=== PATIENT | male | born 2000 | race Caucasian/White ===

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

== ENCOUNTER 2018-09-14 22:06 | Emergency (ER) | payer BC ==
[~2018-09-14] VITALS: Ht 167.6 cm; Wt 75.8 kg
[~2018-09-14 22:06] MED LIST: APIX5TAB PO; CYAN500T46 PO; MESA0.372 PO; OXCA150T3 PO; PRED10TA PO; QUET50TA PO
[2018-09-14 22:17] VITALS: Ht 167.6 cm; Wt 75.8 kg
[2018-09-14] MEDS ORDERED: SOD CHLORIDE 0.9% 1,000 ML IV STA (22:40)
[2018-09-14] MEDS ORDERED: ONDANSETRON 4 MG INJ IV STA (22:40)
[2018-09-15] MEDS ORDERED: LORAZEPAM 2 MG INJ IV ONE
[2018-09-15] MEDS ORDERED: SOD CHLORIDE 0.9% 1,000 ML IV STA (00:25)
[2018-09-15] MEDS ORDERED: ONDANSETRON 4 MG INJ IV STA (00:25)
[2018-09-15] MEDS ORDERED: morphine 4 MG/ML VIAL IV STA (01:01)
[2018-09-15] MEDS ORDERED: ONDA4TAB14 PO (02:02)
[2018-09-15] MEDS ORDERED: ACET325T33 PO (02:02)
[2018-09-15] MEDS ORDERED: SCOPOLAMINE 1.5 MG PATCH TRANSDERM ONE (02:30)
[2018-09-15 03:36] VITALS: BP 111/73; PULSE 56; RESP 16
--- NOTE | 2018-09-15 05:01 | ERD ---
ER Documentation Chief Complaint Chief Complaint VOMITING WITH MIGRAINE X1DAY HPI 17-year-old male presenting with vomiting. Patient has history of ulcerative colitis and recently was given treatment of methotrexate and Remicade. Patient had similar reaction last time he received methotrexate and there is concern about possible allergy. Patient states that he feels very weak and has tingling sensations. He has been vomiting for the last day. Has chills but no fevers. Denies any chest pain or shortness of breath. Has diffuse abdominal cramping. Medical history of ulcerative colitis and bipolar disorder. Surgical history denies. Social history denies ROS All systems reviewed and are negative except as per history of present illness. Medications Home Meds Active Scripts Acetaminophen* (Tylenol*) 325 Mg Tablet, 1 TAB PO Q6 PRN for PAIN AND OR ELEVATED TEMP, #20 TAB Prov:WILBERT ARMENTA PA-C 09/15/18 Ondansetron (Ondansetron Odt) 4 Mg Tab.rapdis, 4 MG PO Q6H PRN for NAUSEA AND/OR VOMITING, #10 TAB Prov:WILBERT ARMENTA PA-C 09/15/18 Apixaban* (Eliquis*) 5 Mg Tablet, 10 MG PO BID for 30 Days, TAB Take 10mg BID daily for the first 7 days followed by 5mg BID daily for the next 3 months or until follow up with your PCP. Prov:COLT AARON MD 06/05/17 Reported Medications Cyanocobalamin* (Vitamin B12*) 500 Mcg Tab, 500 MCG PO DAILY, TAB 06/05/17 Mesalamine* (Apriso*) 0.375 Gm Cap.sr.24h, 1.5 GM PO DAILY, CAP 06/05/17 Prednisone* (Prednisone*) 10 Mg Tab, 10 MG PO DAILY, TAB 06/05/17 Oxcarbazepine* (Trileptal*) 150 Mg Tablet, 150 MG PO BID, TAB 06/05/17 Quetiapine Fumarate* (Seroquel*) 50 Mg Tablet, 50 MG PO DAILY, TAB 06/05/17 Allergies Allergies: Coded Allergies: No Known Allergy (Unverified , 06/05/17) PMhx/Soc History of Surgery: Yes (TONSILECTOMY ) Anesthesia Reaction: No Hx Miscellaneous Medical Probl: Yes (BIPOLAR, c-diff, low blood count) Hx Alcohol Use: No Hx Substance Use: Yes (MARIJUANA ) Hx Tobacco Use: No Smoking Status: Never smoker FmHx Family History: No diabetes, No coronary disease, No other Physical Exam Vitals Vital Signs Date Temp Pulse Resp B/P (MAP) Pulse Ox O2 O2 Flow FiO2 Time Delivery Rate 09/15/18 97.6 56 16 111/73 98 Room Air 03:36 (86) 09/14/18 98.0 91 16 131/74 95 22:17 (93) Physical Exam GENERAL: The patient is well-appearing, well-nourished, in no acute distress HEENT: Atraumatic. Conjunctivae are pink. Pupils equal, round, and reactive to light. There is no scleral icterus. Tympanic membranes clear bilaterally. Oropharynx clear. No nystagmus or photophobia. CHEST: Clear to auscultation bilaterally. There are no rales, wheezes or rhonchi. HEART: Regular rate and rhythm. No murmurs, clicks, rubs or gallops. No S3 or S4. ABDOMEN:Soft, nontender and nondistended. Good bowel sounds. No rebound or guarding. No gross peritonitis. No gross organomegaly or masses. No Soria sign or McBurney point tenderness. NEUROLOGIC: Alert and oriented. Cranial nerves II through XII intact. Motor strength in all 4 extremities with 5 out of 5 strength. Sensation grossly intact. Result Diagram: 09/14/18 2311 09/14/18 2311 Results 24 hrs Laboratory Tests Test 09/14/18 23:11 White Blood Count 10.4 10^3/ul Red Blood Count 4.99 10^6/ul Hemoglobin 15.1 g/dl Hematocrit 43.3 % Mean Corpuscular Volume 86.8 fl Mean Corpuscular Hemoglobin 30.3 pg Mean Corpuscular Hemoglobin Concent 34.9 g/dl Red Cell Distribution Width 12.0 % Platelet Count 314 10^3/UL Mean Platelet Volume 9.1 fl Immature Granulocytes % 0.200 % Neutrophils % 65.9 % Lymphocytes % 26.7 % Monocytes % 5.4 % Eosinophils % 1.6 % Basophils % 0.2 % Nucleated Red Blood Cells % 0.0 /100WBC Immature Granulocytes # 0.020 10^3/ul Neutrophils # 6.9 10^3/ul Lymphocytes # 2.8 10^3/ul Monocytes # 0.6 10^3/ul Eosinophils # 0.2 10^3/ul Basophils # 0.0 10^3/ul Nucleated Red Blood Cells # 0.0 10^3/ul Urine Color YELLOW Urine Clarity CLEAR Urine pH 7.0 Urine Specific [place] 1.018 Urine Ketones 1+ mg/dL Urine Nitrite NEGATIVE mg/dL Urine Bilirubin NEGATIVE mg/dL Urine Urobilinogen NEGATIVE mg/dL Urine Leukocyte Esterase NEGATIVE [place]/ul Urine Hemoglobin NEGATIVE mg/dL Urine Glucose NEGATIVE mg/dL Urine Total Protein NEGATIVE mg/dl Sodium Level 140 mmol/L Potassium Level 3.4 mmol/L Chloride Level 98 mmol/L Carbon Dioxide Level 24 mmol/L Anion Gap 18 Blood Urea Nitrogen 13 mg/dl Creatinine 0.64 mg/dl Est Glomerular Filtrat Rate mL/min > 60 mL/min Glucose Level 89 mg/dl Calcium Level 9.8 mg/dl Total Bilirubin 0.4 mg/dl Direct Bilirubin 0.00 mg/dl Indirect Bilirubin 0.4 mg/dl Aspartate Amino Transf (AST/SGOT) 34 IU/L Alanine Aminotransferase (ALT/SGPT) 41 IU/L Alkaline Phosphatase 72 IU/L Total Protein 8.5 g/dl Albumin 4.7 g/dl Globulin 3.80 g/dl Albumin/Globulin Ratio 1.23 Lipase 39 U/L Current Medications Medications Dose Sig/Annamarie Start Time Status Last (Trade) Ordered Route PRN Stop Time Admin Dose Reason Admin Sodium 1,000 ml @ Q1H STAT 09/14/18 DC 09/14/18 Chloride 1,000 mls/hr IV 22:40 09/14/18 23:14 23:39 Ondansetron 4 mg ONCE STAT 09/14/18 DC 09/14/18 HCl (Zofran IV 22:40 09/14/18 23:14 Inj) 22:41 Lorazepam 0.5 mg ONCE ONCE 09/15/18 DC 09/15/18 (Ativan) IV 00:00 09/15/18 00:00 00:01 Ondansetron 2 mg ONCE STAT 09/15/18 DC 09/15/18 HCl (Zofran IV 00:25 09/15/18 00:33 Inj) 00:26 Sodium 1,000 ml @ Q1H STAT 09/15/18 DC 09/15/18 Chloride 1,000 mls/hr IV 00:25 09/15/18 00:33 01:24 Morphine 4 mg ONCE STAT 09/15/18 DC 09/15/18 Sulfate IV 01:01 09/15/18 01:16 (morphine) 01:02 Scopolamine 1 patch ONCE ONCE 09/15/18 DC 09/15/18 TRANSDERM 02:30 09/15/18 02:35 (Transderm-Sc 02:31 op) Procedures/MDM ER course: 2 L normal saline given ED. Blood work normal. Zofran, morphine and Ativan given ED. Scopolamine patch given in ED and nausea resolved. MDM: 17-year-old male presenting with nausea and vomiting with diarrhea. I have low suspicion for dehydration. I have low suspicion for acute abdominal patient discharged stricter precautions and told to follow-up with primary care physician within 1-2 days for close evaluation.. Patient is told symptoms change or worsen to return the ER. All questions answered at discharge Departure Diagnosis: Primary Impression: Vomiting Condition: Stable Patient Instructions: Vomiting (4Y-Adult) Referrals: [facility] YOU HAVE RECEIVED A MEDICAL SCREENING EXAM AND THE RESULTS INDICATE THAT YOU DO NOT HAVE A CONDITION THAT REQUIRES URGENT TREATMENT IN THE EMERGENCY DEPARTMENT. FURTHER EVALUATION AND TREATMENT OF YOUR CONDITION CAN WAIT UNTIL YOU ARE SEEN IN YOUR DOCTORS OFFICE WITHIN THE NEXT 1-2 DAYS. IT IS YOUR RESPONSIBILITY TO MAKE AN APPOINTMENT FOR FOLOW-UP CARE. IF YOU HAVE A PRIMARY DOCTOR --you should call your primary doctor and schedule an appointment IF YOU DO NOT HAVE A PRIMARY DOCTOR YOU CAN CALL OUR PHYSICIAN REFERRAL HOTLINE AT IF YOU CAN NOT AFFORD TO SEE A PHYSICIAN YOU CAN CHOSE FROM THE FOLLOWING [facility] CLINICS [facility] [id number] [facility]. [facility] [address] [facility]. [facility] [address] [facility]. [facility] [address] [facility]. [facility] [address] [facility]. [facility]. [address] Additional Instructions: FOLLOW UP WITH YOUR PRIMARY CARE PHYSICIAN TOMORROW.Return to this facility if you are not improving as expected. WILBERT ARMENTA PA-C Sep 15, 2018 05:01
== END 2018-09-15 03:36 | disposition home or self-care (01) ==
LOC: FTE 22:06
DX: R11.10 Vomiting, unspecified (principal); Z79.01 Long term (current) use of anticoagulants
CPT/HCPCS: 36415; 80053; 81003; 83690; 85025; 96374; 96375; 96376; 99284; J2060; J2270; J2405; J7030